=== PATIENT | male | born 1985 | race African-American/Black ===

== ENCOUNTER 2017-01-29 17:58 | Emergency (ER) | payer OTHER ==
[~2017-01-29] VITALS: Ht 170.2 cm; Wt 52.1 kg
[~2017-01-29 17:58] MED LIST: ABILIFY20 MG PO; BENZTROPINE MESY1 MG PO; DEPAKOTE250 MG PO; LAMICTAL; QUETIAPINE FUM100 MG PO; QUETIAPINE FUM300 MG PO; QUETIAPINE FUMA50 MG PO; RISPERDAL; TRAZODONE HCL100 MG PO; ZIPRASIDONE HCL80 MG PO; ZOLPIDEM TARTRA10 MG PO; [UNRECOGNIZED DRUG - OTHER] IM; risperDAL PO; ~No Medications
[2017-01-29 20:39] VITALS: BP 100/67
== END 2017-01-29 21:53 | disposition home or self-care (01) ==
LOC: EME 17:58
DX: F20.9 Schizophrenia, unspecified (principal); F31.9 Bipolar disorder, unspecified; Z59.0 Homelessness; Z04.6 Encounter for general psychiatric examination, requested by authority
CPT/HCPCS: 90837; 99281; 99284; G0480

== ENCOUNTER 2017-02-18 11:48 | Inpatient (IN) | payer OTHER ==
[~2017-02-18] VITALS: Ht 170.2 cm; Wt 52.3 kg
[2017-02-18 15:08] LABS: EOSINOPHIL (%) 2.1 % (0-5); EOSINOPHIL COUNT 0.1 K/uL (0-0.3); HEMATOCRIT 36.2 % (38.0-50.0); IMMATURE GRANULOCYTE (%) 0.3 % (0.0-0.7); MCV 91.2 FL (86-99); MEAN PLAT.VOLUME 9.1 uM^3 (9.0-12.4); MONOCYTE (%) 18.5 % (3-12); MONOCYTE COUNT 0.7 K/uL (0-0.8); NEUTROPHIL (%) 53.7 % (45-76); PLATELET COUNT 268 K/uL (156-360); RBC DIS.WIDTH-CV 14.5 % (11.8-14.6); RBC DIS.WIDTH-SD 48.8 % (39-53); RED BLOOD COUNT 3.97 M/uL (4.00-5.50); WHITE BLOOD COUNT 3.8 K/uL (4.1-10.2)
[2017-02-18 15:16] LABS: CHLORIDE 104 mEq/L (99-109); POTASSIUM 3.8 mEq/L (3.7-5.4); SODIUM 141 mEq/L (136-147)
[2017-02-18 15:19] LABS: GLUCOSE 96 mg/dL (70-99)
[2017-02-18 15:20] LABS: ANION GAP 9 MEQ/L (2-14); TOTAL BILIRUBIN 0.3 mg/dL (0.0-1.0)
[2017-02-18 15:21] LABS: SERUM ETHYL ALCOHOL < 10 mg/dL
[2017-02-18 15:22] LABS: ALKALINE PHOSPHATASE 74 IU/L (3-129); GFR ESTIMATE (CALCULATED) > 59 mL/min/
[2017-02-18 15:23] LABS: UREA NITROGEN (BUN) 11 mg/dL (9-23)
[2017-02-18 15:24] LABS: DIRECT BILIRUBIN 0.1 mg/dL (0.0-0.3)
[2017-02-20 12:51] VITALS: BP 120/74
[2017-02-20 12:58] VITALS: BP 120/74
[2017-02-22 16:10] VITALS: BP 124/69
[2017-02-23 16:30] VITALS: BP 135/77
[2017-03-02] MEDS ORDERED: QUETIAPINE FUM300 MG PO (09:13)
[2017-03-02] MEDS ORDERED: BENZTROPINE MESY1 MG PO (09:13)
[2017-03-02] MEDS ORDERED: ZIPRASIDONE HCL80 MG PO (09:13)
== END 2017-03-02 11:24 | disposition home or self-care (01) | DRG 885 ==
LOC: EME 11:48 → 1WEST 02-20 11:30 → EDOF 02-20 11:30 → 1WEST 02-20 12:35
PROVIDERS: Emergency Medicine
DX: F20.9 Schizophrenia, unspecified (principal); R45.1 Restlessness and agitation; Z59.0 Homelessness; Z78.1 Physical restraint status
CPT/HCPCS: 80048; 80076; 81003; 85025; 90837; 97150 GO; 97166 GO; 99281; 99284; G0480; J1630; J2060; J3486; Q0177

== ENCOUNTER 2017-03-11 13:41 | Emergency (ER) | payer OTHER ==
[~2017-03-11] VITALS: Ht 165.1 cm; Wt 47.7 kg
[2017-03-11 15:31] LABS: HEMATOCRIT 40.6 % (38.0-50.0); MCH 31.2 PG (29.0-34.0); MCV 89.2 FL (86-99); MEAN PLAT.VOLUME 9.5 uM^3 (9.0-12.4); PLATELET COUNT 257 K/uL (156-360); RBC DIS.WIDTH-CV 14.6 % (11.8-14.6); RBC DIS.WIDTH-SD 47.8 % (39-53); RED BLOOD COUNT 4.55 M/uL (4.00-5.50)
[2017-03-11 15:48] LABS: CHLORIDE 103 mEq/L (99-109); POTASSIUM 3.6 mEq/L (3.7-5.4); SODIUM 140 mEq/L (136-147)
[2017-03-11 15:50] LABS: GLUCOSE 80 mg/dL (70-99)
[2017-03-11 15:51] LABS: ANION GAP 11 MEQ/L (2-14)
[2017-03-11 15:52] LABS: TOTAL BILIRUBIN 0.7 mg/dL (0.0-1.0)
[2017-03-11 15:53] LABS: SERUM ETHYL ALCOHOL < 10 mg/dL
[2017-03-11 15:54] LABS: ALKALINE PHOSPHATASE 78 IU/L (3-129); GFR ESTIMATE (CALCULATED) > 59 mL/min/
[2017-03-11 15:55] LABS: UREA NITROGEN (BUN) 11 mg/dL (9-23)
[2017-03-12 06:00] VITALS: BP 98/59
== END 2017-03-12 06:04 | disposition home or self-care (01) ==
LOC: EME 13:41
PROVIDERS: Emergency Medicine
DX: F20.9 Schizophrenia, unspecified (principal); F17.200 Nicotine dependence, unspecified, uncomplicated
CPT/HCPCS: 80053; 81003; 85027; 90837; 99281; 99285; G0480; J1630; J2060

== ENCOUNTER 2017-04-14 11:15 | Inpatient (IN) | payer OTHER ==
[~2017-04-14] VITALS: Ht 167.6 cm; Wt 46.9 kg
[2017-04-14] MEDS ORDERED: SEROQUEL300 MG PO (17:27)
[2017-04-14] MEDS ORDERED: ZIPRASIDONE HCL80 MG PO (17:27)
[2017-04-14] MEDS ORDERED: GEODON80 MG PO (17:28)
[2017-04-14] MEDS ORDERED: BENZTROPINE MESY1 MG PO (17:28)
[2017-04-14 17:54] LABS: HEMATOCRIT 36.1 % (38.0-50.0); MCH 30.7 PG (29.0-34.0); MCHC 34.9 G/DL (30.0-36.0); MEAN PLAT.VOLUME 9.4 uM^3 (9.0-12.4); PLATELET COUNT 258 K/uL (156-360); RBC DIS.WIDTH-CV 13.8 % (11.8-14.6); RBC DIS.WIDTH-SD 44.2 % (39-53); WHITE BLOOD COUNT 3.4 K/uL (4.1-10.2)
[2017-04-14 18:11] LABS: CHLORIDE 103 mEq/L (99-109); SODIUM 137 mEq/L (136-147)
[2017-04-14 18:12] LABS: GLUCOSE 87 mg/dL (70-99)
[2017-04-14 18:14] LABS: ANION GAP 8 MEQ/L (2-14)
[2017-04-14 18:16] LABS: GFR ESTIMATE (CALCULATED) > 59 mL/min/
[2017-04-14 18:17] LABS: UREA NITROGEN (BUN) 13 mg/dL (9-23)
[2017-04-23 15:24] VITALS: BP 121/78
[2017-04-24] MEDS ORDERED: GEODON40 MG PO (09:39)
== END 2017-04-24 14:25 | disposition home or self-care (01) | DRG 885 ==
LOC: EME 11:15 → 1WEST 18:01 → EDOF 18:01 → 1WEST 19:35
PROVIDERS: Emergency Medicine
DX: F20.0 Paranoid schizophrenia (principal); Z91.14 Patient's other noncompliance with medication regimen; Z91.19 Patient's noncompliance with other medical treatment and regimen; F17.200 Nicotine dependence, unspecified, uncomplicated; Z59.0 Homelessness
CPT/HCPCS: 80048; 85027; 90837; 97150 GO; 97166 GO; 97530 GO; 99281; 99285; G0480

== ENCOUNTER 2017-05-03 23:58 | Emergency (ER) | payer OTHER ==
[~2017-05-03] VITALS: Ht 172.7 cm; Wt 51.2 kg
[~2017-05-03 23:58] MED LIST changes: +GEODON40 MG PO; +GEODON80 MG PO; +SEROQUEL300 MG PO
[2017-05-04 00:34] VITALS: BP 101/65
== END 2017-05-04 00:48 | disposition left against medical advice (07) ==
LOC: EME → EDBD 23:58 → EME 05-04 00:48
DX: R41.82 Altered mental status, unspecified (principal); F20.9 Schizophrenia, unspecified; F17.200 Nicotine dependence, unspecified, uncomplicated
CPT/HCPCS: 99281; 99284